=== PATIENT | male | born 1990 | race Caucasian/White ===

== ENCOUNTER 2023-10-12 09:57 | Outpatient (CLI) | payer OTHER, SELFPAY | END 2023-10-12 09:58 | disposition home or self-care (01) | PROVIDERS: Visit Provider Nurse Practitioner Family | DX: J02.9 Acute pharyngitis, unspecified (principal) | CPT/HCPCS: 87070 ==

== ENCOUNTER 2024-01-20 00:35 | Emergency (ER) | payer OTHER, SELFPAY ==
[2024-01-20 00:43] VITALS: BP 142/92; PULSE 87; RESP 16; TEMP 36.4; O2SAT 97; BMI 44.5
--- NOTE | 2024-01-20 00:50 | ED.CHESTPAIN ---
HPI - Chest Pain General Time Seen by Provider: 00:50 Date Seen: 01/20/24 Chief Complaint: Chest Pain Stated Complaint: chest pain Time Seen by Provider: 01/20/24 00:39 Source: patient and family Mode of arrival: ambulatory Limitations: no limitations History of Present Illness HPI narrative: 33-year-old male who comes in today with left-sided chest pain starting about 2 hours prior to arrival in the emergency department. Pain is constant, occasionally sharp but mostly dull in the left upper chest. Feels like he gets occasional spasms in the left arm as well. No nausea vomiting, possibly some shortness of breath although he is a little unsure if he feels short of breath or not. Has not taken anything for this. No recent injury, no recent illness, may be little bit worse lying down. 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 Patient presents today with left upper chest pain radiating left arm occasionally, questionable shortness of breath. On exam here, patient's vital is stable. Appears comfortable, pain is not reproducible on exam, initial EKG is reassuring. Labs are ordered along with chest x-ray, Toradol. Consider CT PE study or D-dimer but patient is low risk by Wells criteria and PERC negative EKG independently interpreted by me performed at 12:53 a.m. demonstrates normal sinus rhythm rate 79, no acute ST elevations or depressions, normal intervals, normal axis, QTC 4 3, NV 144, QRS 92. No prior for comparison Reevaluation(s) Time of Reevaluation #1: 01:43 Reevaluation #1: Labs ordered and independently interpreted by me with mild leukocytosis but also elevated hemoglobin, normal basic panel, normal magnesium, negative CRP. Troponin, BNP, and D-dimer are pending Time of Reevaluation #2: 01:53 Reevaluation #2: Labs independently interpreted by me with negative D-dimer, chest x-ray ordered. Time of Reevaluation #3: 02:08 Reevaluation #3: Labs independently interpreted by me with negative troponin, repeat troponin will be performed at 2:00 a.m. although patient is low risk for acute coronary syndrome Additional Reevaluation(s): 2:59 a.m. updated patient with findings and plan, he is feeling better. Repeat troponin is pending and anticipate discharge if this is negative. Vital Signs Vital signs: Initial Vital Signs Temperature 97.5 F L 01/20/24 00:43 Temperature Source Temporal Artery Scan 01/20/24 00:43 Pulse Rate 87 01/20/24 00:43 Pulse Rhythm Regular 01/20/24 00:43 Respiratory Rate 16 01/20/24 00:43 Blood Pressure 142/92 H 01/20/24 00:43 Blood Pressure Mean 108 H 01/20/24 00:43 Blood Pressure Position Sitting 01/20/24 00:43 Pulse Oximetry 97 01/20/24 00:43 Oxygen Delivery Method Room Air 01/20/24 00:43 Vital Signs Temperature 97.5 F L 01/20/24 00:43 Pulse Rate 87 01/20/24 00:43 Respiratory Rate 16 01/20/24 00:43 Blood Pressure 142/92 H 01/20/24 00:43 Pulse Oximetry 97 01/20/24 00:43 Oxygen Delivery Method Room Air 01/20/24 00:43 Temperature 97.5 F L 01/20/24 00:43 Pulse Rate 86 01/20/24 02:00 Respiratory Rate 16 01/20/24 02:00 Blood Pressure 118/79 01/20/24 02:00 Pulse Oximetry 94 01/20/24 02:00 Oxygen Delivery Method Room Air 01/20/24 02:00 Medications Administered Medications: Generic Name Dose Route Start Last Admin Trade Name Freq PRN Reason Stop Dose Admin Ketorolac Tromethamine 15 mg 01/20/24 00:59 01/20/24 01:12 Ketorolac 15 Mg/Ml Inj IVP 01/20/24 01:00 15 mg ONCE ONE Administration MDM - Chest Pain Lab Data Labs: Lab Results 01/20/24 01/20/24 Range/Units 01:10 01:33 WBC 14.05 H (4.50-11.00) K/uL RBC 5.47 (4.30-5.90) m/uL Hgb 18.0 H (13.5-17.5) gm/dL Hct 49.8 (37.0-53.0) % MCV 91 (80-100) fL MCH 33 (26-34) pg MCHC 36 (32-36) gm/dL RDW Coeff of [place] 12.1 (11.5-15.5) % Plt Count 424 (140-440) K/uL Neut % (Auto) 44.9 (42.0-72.0) % Lymph % (Auto) 31.0 (20-44) % [place] % (Auto) 16.4 H (0.0-11.0) % Eos % (Auto) 6.5 (0.0-7.0) % Baso % (Auto) 0.6 (0.0-3.0) % Neut # (Auto) 6.30 (1.7-7.0) K/uL Lymph # (Auto) 4.40 H (0.90-2.90) K/uL [place] # (Auto) 2.30 H (0.00-0.90) K/UL Eos # (Auto) 0.90 H (0.00-0.50) K/uL Baso # (Auto) 0.10 (0.00-0.30) K/uL Abs Immat Gran (auto) 0.10 (0.00-0.30) K/uL Imm/Tot Granulo (auto) 0.6 % D-Dimer Quant (PE/DVT) 0.21 (0.00-0.50) ug/ml Sodium 138 (135-149) mmol/L Potassium 3.6 (3.6-5.1) mmol/L Chloride 104 (96-114) mmol/L Carbon Dioxide 25 (20-32) mmol/L Anion Gap 9 (7-15) mEq/L BUN 15 (5-24) mg/dL Creatinine 0.9 (0.5-1.5) mg/dL Estimated Creat Clear 119.41 Estimated GFR 115 ml/min Glucose 105 (60-115) mg/dL Calcium 9.3 (8.4-10.6) mg/dL Magnesium 2.1 (1.5-2.6) mg/dL Troponin I < 0.01 L (0.01-0.04) ng/mL C-Reactive Protein < 0.5 L (0.5-1.0) mg/dL NT-Pro-B Natriuret Pep 21 pg/mL Lab Acknowledgement Test Added Discharge Plan Discharge Clinical Impression: Atypical chest pain Patient Disposition: Home, Self-Care Condition: Stable Instructions: Noncardiac Chest Pain (ED) Activity Level: Activity as Tolerated Prescriptions: No Action benzonatate 200 mg capsule 200 mg PO TID PRN (Reason: cough) Qty: 30 0RF Follow Up/Referrals: Provider,Not a Local [Primary Care Provider] - Stand Alone Forms: MyHealth Info Instructions
[2024-01-20] MEDS: KETOROLAC 15 MG/ML inj IVP (01:12)
[2024-01-20 01:20] LABS: Basophils Percent Auto 0.6 % (0.0-3.0); Eosinophils Percent Auto 6.5 % (0.0-7.0); Hematocrit 49.8 % (37.0-53.0); Immature Granulocytes Pct Auto 0.6 %; Mean Corpuscular HGB Conc 36 gm/dL (32-36); Mean Corpuscular Hemoglobin 33 pg (26-34); Mean Corpuscular Volume 91 fL (80-100); Monocytes Percent Auto 16.4 % (0.0-11.0); Neutrophils Percent Auto 44.9 % (42.0-72.0); Platelet Count* 424 K/uL (140-440); RDW Coefficient of Variation % 12.1 % (11.5-15.5); Red Blood Count 5.47 m/uL (4.30-5.90); White Blood Count* 14.05 K/uL (4.50-11.00)
[2024-01-20 01:22] LABS: Slide Review Reflex No
[2024-01-20 01:32] LABS: Chloride* 104 mmol/L (96-114); Potassium* 3.6 mmol/L (3.6-5.1); Sodium* 138 mmol/L (135-149)
[2024-01-20 01:35] LABS: Creatinine* 0.9 mg/dL (0.5-1.5); Est. Creatinine Clearance* 119.41; Estimated Glomerular Filt Rate 115 ml/min
[2024-01-20 01:36] LABS: Anion Gap 9 mEq/L (7-15); Blood Urea Nitrogen* 15 mg/dL (5-24); Calcium* 9.3 mg/dL (8.4-10.6); Carbon Dioxide* 25 mmol/L (20-32); Glucose* 105 mg/dL (60-115); Magnesium* 2.1 mg/dL (1.5-2.6)
[2024-01-20 01:39] LABS: C Reactive Protein* < 0.5 mg/dL (0.5-1.0)
[2024-01-20 01:45] LABS: NT Pro B Type NatriureticPept* 21 pg/mL
[2024-01-20 01:50] LABS: D Dimer Quantitative* 0.21 ug/ml (0.00-0.50)
--- NOTE | 2024-01-20 01:53 | CRLHL7_ITS ---
For Patients: As a result of the Century Cures Act, medical imaging exams and procedure reports are released immediately into your electronic medical record. You may view this report before your referring provider. If you have questions, please contact your health care provider. INDICATION: Left-sided chest pain, leukocytosis. TECHNIQUE: Chest 2 views. COMPARISON: 10/12/2023. FINDINGS: Cardiovascular and mediastinum: Heart size and vasculature are normal in caliber and appearance. Lungs and pleural spaces: Lungs are clear. No sign of infiltrate or mass. No sign of pleural effusion. No pneumothorax. Bones and soft tissues: No significant findings. IMPRESSION: No acute findings and no significant changes from the prior exam. Dictated by Jayson Reyes MD @ 01/20/2024 2:51:51 AM (Electronically Signed)
[2024-01-20 02:00] VITALS: BP 118/79; PULSE 86; RESP 16; O2SAT 94
[2024-01-20 02:06] LABS: Troponin I* < 0.01 ng/mL (0.01-0.04)
== END 2024-01-20 03:37 | disposition home or self-care (01) ==
PROVIDERS: Emergency Provider Family Medicine
DX: R07.89 Other chest pain (principal)
CPT/HCPCS: 36415; 71046; 80048; 83735; 83880; 84484; 85025; 85379; 86140; 93005; 96374; 99284; 99285; J1885